=== PATIENT | female | born 1980 | race American Indian/Alaskan Native ===

== ENCOUNTER 2018-06-17 00:43 | Inpatient (IN) | payer MEDICAID ==
[2018-06-17] MEDS ORDERED: Sodium Chloride 0.9% 10 ML Syringe FLUSH PRN (01:34)
[2018-06-17] MEDS ORDERED: Ibuprofen 200 MG Tab, 24 Tab Bulk Bottle PO PRN (01:38)
[2018-06-17] MEDS ORDERED: Acetaminophen 325 MG Tab, 50 Tab Bulk Bottle PO PRN (01:38)
[2018-06-17] MEDS ORDERED: Docusate Sodium 100 MG Cap PO PRN (01:38)
[2018-06-17] MEDS ORDERED: Witch Hazel Medicated Pads 100/Jar TOP PRN (01:38)
--- NOTE | 2018-06-17 01:49 | PCM.LDHP ---
L&D History of Present Illness - General Date of Service: 06/17/18 Admit Problem/Dx: Patient Status Order with Admit Dx/Problem 06/17/18 00:44 Patient Status [ADT] Routine 06/17/18 01:38 Patient Status [ADT] Routine Admission Diagnosis/Problem Admission Diagnosis/Problem Vaginal delivery - Related Data Allergies/Adverse Reactions: Allergies Allergy/AdvReac Type Severity Reaction Status Date / Time No Known Allergies Allergy Verified 09/22/14 01:43 Home Medications: Home Meds Vit 90/Iron Fum/Folic [ Formula] 1 each PO DAILY 09/22/14 [ History] Ferrous Sulfate [Iron Supplement] 1 tab PO DAILY 10/25/14 [History] Past Medical History - Past Health History Medical/Surgical History: Denies Medical/Surgical History : 8 Para: 7 Other OB/BYN History: FABRICE-06/30/2018 second trimester US dating H&P Review of Systems - Review of Systems: Review Of Systems: See Below General: Reports: No Symptoms HEENT: Reports: No Symptoms Pulmonary: Reports: No Symptoms Cardiovascular: Reports: No Symptoms Gastrointestinal: Reports: No Symptoms Genitourinary: Reports: No Symptoms Musculoskeletal: Reports: No Symptoms Skin: Reports: No Symptoms Psychiatric: Reports: No Symptoms Neurological: Reports: No Symptoms Hematologic/Lymphatic: Reports: No Symptoms Immunologic: Reports: No Symptoms L&D Exam - Exam Exam: See Below - OB Specific Contraction Intensity: Strong Movement: Active Heart Tones: Present Presentation: Vertex - Exam General: Alert, Oriented HEENT: PERRLA, Conjunctiva Clear, EACs Clear, EOMI, Hearing Intact, Mucosa Moist & [place], Nares Patent, Normal Nasal Septum, Posterior Pharynx Clear, TMs Clear Neck: Supple, Trachea Midline Lungs: Clear to Auscultation, Normal Respiratory Effort Cardiovascular: Regular Rate, Regular Rhythm GI/Abdominal Exam: Normal Bowel Sounds, Soft, Non-Tender, No Organomegaly, No Distention, No Abnormal Bruit, No Mass, Pelvis Stable Rectal Exam: Normal Exam, Normal Rectal Tone Genitourinary: Normal external exam, Normal bimanual exam, Normal speculum exam Back Exam: Normal Inspection, Full Range of Motion Extremities: Normal Inspection, Normal Range of Motion, Non-Tender, No Pedal Edema, Normal Capillary Refill Skin: Warm, Dry, Intact Neurological: Cranial Nerves Intact, Reflexes Equal Bilateral Psychiatric: Alert, Normal Affect, Normal Mood - Patient Data Lab Results Last 24 hrs: Laboratory Results - last 24 hr 06/17/18 Range/Units 01:00 WBC 14.1 H (4.5-11.0) K/uL RBC 4.70 (3.30-5.50) M/uL Hgb 9.0 L (12.0-15.0) g/dL Hct 29.9 L (36.0-48.0) % MCV 64 L (80-98) fL MCH 19 L (27-31) pg MCHC 30 L (32-36) % Plt Count 312 (150-400) K/uL Neut % (Auto) 82 H (36-66) % Lymph % (Auto) 14 L (24-44) % [place] % (Auto) 4 (2-6) % Eos % (Auto) 0 L (2-4) % Baso % (Auto) 0 (0-1) % Result Diagrams: 06/17/18 01:00 - Problem List (1) SNOMED Code(s): 89199377 ICD Code: Z34.90 - ENCNTR FOR SUPRVSN OF NORMAL , UNSP, UNSP TRIMESTER Status: Acute Current Visit: Yes Qualifiers: Weeks of gestation: 38 weeks Qualified Code(s): Z3A.38 - 38 weeks gestation of (2) Insufficient care SNOMED Code(s): 9999252073871 ICD Code: O09.30 - SUPRVSN OF PREG W INSUFFICIENT ANTENAT CARE, UNSP TRIMESTER Status: Acute Current Visit: Yes (3) History of drug abuse SNOMED Code(s): 267202380 ICD Code: Z87.898 - PERSONAL HISTORY OF OTHER SPECIFIED CONDITIONS Status: Acute Current Visit: Yes (4) Social problem SNOMED Code(s): 391132719 ICD Code: Z65.9 - PROBLEM RELATED TO UNSPECIFIED PSYCHOSOCIAL CIRCUMSTANCES Status: Acute Current Visit: Yes (5) Positive GBS test SNOMED Code(s): 7811271033727, 9491588131583 ICD Code: B95.1 - STREPTOCOCCUS, GROUP B, CAUSING DISEASES CLASSD ELSWHR Status: Acute Current Visit: Yes (6) Precipitous delivery SNOMED Code(s): 784974733 ICD Code: O62.3 - PRECIPITATE LABOR Status: Acute Current Visit: Yes Problem List Initiated/Reviewed/Updated: Yes Orders Last 24hrs: Active Orders 24 hr Category Date Time Status Patient Status [ADT] Routine ADT 06/17/18 00:44 Active Patient Status [ADT] Routine ADT 06/17/18 01:38 Active Ambulate [RC] PER UNIT ROUTINE Care 06/17/18 01:34 Active Communication Order [RC] ASDIRECTED Care 06/17/18 01:34 Active Communication Order [RC] ROUTINE Care 06/17/18 01:38 Active Heart Tones [RC] PER UNIT ROUTINE Care 06/17/18 01:34 Active Non Stress Test [RC] Click to Edit Care 06/17/18 01:34 Active Notify Provider Vital Signs [RC] PRN Care 06/17/18 00:44 Active Notify Provider [RC] PRN Care 06/17/18 01:34 Active Up ad Dipti [RC] ASDIRECTED Care 06/17/18 01:34 Active VTE/DVT Education [RC] Click to Edit Care 06/17/18 01:35 Active Vital Signs [RC] PER UNIT ROUTINE Care 06/17/18 01:34 Active Vital Signs [RC] PFP Care 06/17/18 01:38 Active Consult to Case Management/Sas Etl Developer [CONS] Cons 06/17/18 01:38 Active Routine Regular Diet [DIET] Diet 06/17/18 Breakfast Active CBC WITH AUTO DIFF [HEME] Routine Lab 06/18/18 06:00 Ordered DRUG SCREEN, URINE [URCHEM] Routine Lab 06/17/18 01:34 Ordered UA W/MICROSCOPIC [URIN] Routine Lab 06/17/18 01:34 Ordered Acetaminophen [Tylenol Bulk Bottle] Med 06/17/18 01:38 Ordered 325 mg PO Q4H PRN Docusate Sodium [Colace] Med 06/17/18 01:38 Ordered 100 mg PO BID PRN Ferrous Sulfate Med 06/17/18 08:00 Ordered 325 mg PO WITHBREAKFAST Ibuprofen [Motrin Bulk Bottle] Med 06/17/18 01:38 Ordered 600 mg PO Q6H PRN Oxytocin/Normal Saline [Pitocin in NS 20 Units/1,000 ML Med 06/17/18 01:38 Ordered ] 20 unit in 1,000 ml IV ONETIME Vit with Ca/FA/Iron [ Plus Iron] Med 06/17/18 09:00 Ordered 1 each PO DAILY Sodium Chloride 0.9% [Saline Flush] Med 06/17/18 01:34 Ordered 10 ml FLUSH ASDIRECTED PRN Witgeorgina Hassan [Tucks] Med 06/17/18 01:38 Ordered 1 pad TOP ASDIRECTED PRN Assess Lochia [WOMSER] Per Unit Routine Ot 06/17/18 01:38 Ordered Assess Uterine Involution [WOMSER] Per Unit Routine Ot 06/17/18 01:38 Ordered DVT/VTE Prophylaxis Reflex [OM.PC] Routine Ot 06/17/18 01:34 Ordered Perineal Care [OM.PC] Per Unit Routine Ot 06/17/18 01:39 Ordered Saline Lock Insert [OM.PC] Routine Ot 06/17/18 01:34 Ordered Resuscitation Status Routine Resus Stat 06/17/18 01:34 Ordered Medication Orders Acetaminophen (Tylenol Bulk Bottle) 325 mg PO Q4H PRN PRN Reason: Pain Docusate Sodium (Colace) 100 mg PO BID PRN PRN Reason: Constipation Ferrous Sulfate (Ferrous Sulfate) 325 mg PO WITHBREAKFAST JUAN Oxytocin/Sodium Chloride (Pitocin In Ns 20 Units/1,000 Ml) 20 unit in 1,000 mls @ 2,997 mls/hr IV ONETIME ONE; Protocol Stop: 06/17/18 01:58 Ibuprofen (Motrin Bulk Bottle) 600 mg PO Q6H PRN PRN Reason: Pain Prenat Multivit/[place]/Iron/Folic Ac ( Plus Iron) 1 each PO DAILY JUAN Sodium Chloride (Saline Flush) 10 ml FLUSH ASDIRECTED PRN PRN Reason: Keep Vein Open Justine Hassan ([place]) 1 pad TOP ASDIRECTED PRN PRN Reason: Hemorrhoids Assessment/Plan Comment:: 06/17/2018 37 yo here at approximately 38 1/7 gestational weeks in active labor Patient states contractions got strong really fast Poor historian Poor care History of drug abuse SVE-Complete BBOW FHTs category one Contractions regular Plan- Monitor labor Monitor FHTs Plan and anticipate a precipitous vaginal delivery
[2018-06-17] MEDS ORDERED: Methylergonovine 0.2 MG/1 ML Amp ONE (01:58)
[2018-06-17] MEDS ORDERED: Methylergonovine 0.2 MG/1 ML Amp IM ONE (02:00)
--- NOTE | 2018-06-17 02:00 | PCM.DEL ---
L & D Note - General Info Date of Service: 06/17/18 Mother's Due Date: 06/30/18 (Late US due date) - Delivery Note Labor: Spontaneous Delivery Outcome: Livebirth Delivery Method: Spontaneous Vaginal Delivery-Single Delivery Mode: Spontaneous Presentation: tight cord times two around shoulder and arm with compound presentation Anesthesia Type: None Laceration: None Placenta: Intact, Spontaneous Cord: 3 Vessels Estimated Blood Loss: 400 Resuscitation Needed: Yes [place]: Bulb Syringe, Stimulated, Warmed, [place] Used, Warmer Used Provider: Domonique Bai Score 1 min: 2 Score 5 min: 6 Score 10 min: 9 Second Stage Interventions: Reports: Encouragement Given, Pushing Effectively Delivery Comments (Free Text/Narrative):: 06/17/2018 37 yo delivered a viable male at 0053 on 06/17/2018 in JUD position over an intact perineum precipitously. had a tight cord around its shoulder/arm times two with compound presentation, cord double clamped and cut on the perineum. then brought directly to warmer for assessment and intervention. APGARS-2/6/9, weight-8lbs 1oz, length-20.5 inches. was dried, stimulated, warmed, and bulb suctioned at the warmer. When noted to have no pulse or tone initiated neopuff. Neopuff done for 30 seconds, began to have an increase in heart rate, pink in color, and began to cry. Blow by then continued for approximately 4 more minutes. then stablized and was able to go skin to mother wrapped in a prewarmed blanket. Placenta spontaneous and intake, EBL-400ml, three vessel cord. No lacerations noted of labia, perineum, vagina, cervix, or rectum. Infant and mother now stable in labor and delivery room. - General Info Date of Service: 06/17/18 Functional Status: Reports: Pain Controlled - Review of Systems General: Reports: No Symptoms HEENT: Reports: No Symptoms Pulmonary: Reports: No Symptoms Cardiovascular: Reports: No Symptoms Gastrointestinal: Reports: No Symptoms Genitourinary: Reports: No Symptoms Musculoskeletal: Reports: No Symptoms Skin: Reports: No Symptoms Neurological: Reports: No Symptoms Psychiatric: Reports: No Symptoms - Patient Data Lab Results Last 24 Hours: Laboratory Results - last 24 hr 06/17/18 Range/Units 01:00 WBC 14.1 H (4.5-11.0) K/uL RBC 4.70 (3.30-5.50) M/uL Hgb 9.0 L (12.0-15.0) g/dL Hct 29.9 L (36.0-48.0) % MCV 64 L (80-98) fL MCH 19 L (27-31) pg MCHC 30 L (32-36) % Plt Count 312 (150-400) K/uL Neut % (Auto) 82 H (36-66) % Lymph % (Auto) 14 L (24-44) % [place] % (Auto) 4 (2-6) % Eos % (Auto) 0 L (2-4) % Baso % (Auto) 0 (0-1) % Med Orders - Current: Current Medications Acetaminophen (Tylenol Bulk Bottle) 325 - 650 mg PO Q4H PRN PRN Reason: Pain Docusate Sodium (Colace) 100 mg PO BID PRN PRN Reason: Constipation Ferrous Sulfate (Ferrous Sulfate) 325 mg PO WITHBREAKFAST [facility] Oxytocin/Sodium Chloride (Pitocin In Ns 20 Units/1,000 Ml) 20 unit in 1,000 mls @ 2,997 mls/hr IV ONETIME ONE; Protocol Stop: 06/17/18 01:58 Ibuprofen (Motrin Bulk Bottle) 600 mg PO Q6H PRN PRN Reason: Pain Prenat Multivit/Sketch Artist/Iron/Folic Ac ( Plus Iron) 1 each PO DAILY [facility] Sodium Chloride (Saline Flush) 10 ml FLUSH ASDIRECTED PRN PRN Reason: Keep Vein Open Witch Sonya (Tucks) 1 pad TOP ASDIRECTED PRN PRN Reason: Hemorrhoids Discontinued Medications Oxytocin/Sodium Chloride (Pitocin In Ns 20 Units/1,000 Ml) Confirm Administered Dose 20 unit in 1,000 mls @ as directed .ROUTE .STK-MED ONE Stop: 06/17/18 00:56 - Exam General: Alert, Oriented HEENT: Pupils Equal, Pupils Reactive, EOMI, Mucous Membr. Moist/[place] Neck: Supple Lungs: Clear to Auscultation, Normal Respiratory Effort Cardiovascular: Regular Rate, Regular Rhythm GI/Abdominal Exam: Normal Bowel Sounds, Soft, Non-Tender, No Organomegaly, No Distention, No Abnormal Bruit, No Mass, Pelvis Stable (Female) Exam: Normal External Exam, Normal Speculum Exam, Normal Bimanual Exam, Enlarged Uterus, Vaginal Bleeding Back Exam: Normal Inspection, Full Range of Motion Extremities: Normal Inspection, Normal Range of Motion, Non-Tender, No Pedal Edema, Normal Capillary Refill Skin: Warm, Dry, Intact Neurological: No New Focal Deficit Psy/Mental Status: Alert, Normal Affect, Normal Mood - Problem List & Annotations (1) SNOMED Code(s): 77251718 Code(s): Z34.90 - ENCNTR FOR SUPRVSN OF NORMAL , UNSP, UNSP TRIMESTER Status: Acute Current Visit: Yes Qualifiers: Weeks of gestation: 38 weeks Qualified Code(s): Z3A.38 - 38 weeks gestation of (2) Insufficient care SNOMED Code(s): 1342492149490 Code(s): O09.30 - SUPRVSN OF PREG W INSUFFICIENT ANTENAT CARE, UNSP TRIMESTER Status: Acute Current Visit: Yes (3) History of drug abuse SNOMED Code(s): 238880679 Code(s): Z87.898 - PERSONAL HISTORY OF OTHER SPECIFIED CONDITIONS Status: Acute Current Visit: Yes (4) Social problem SNOMED Code(s): 018413169 Code(s): Z65.9 - PROBLEM RELATED TO UNSPECIFIED PSYCHOSOCIAL CIRCUMSTANCES Status: Acute Current Visit: Yes (5) Positive GBS test SNOMED Code(s): 4909769252808, 4892888867940 Code(s): B95.1 - STREPTOCOCCUS, GROUP B, CAUSING DISEASES CLASSD [facility] Status: Acute Current Visit: Yes (6) Precipitous delivery SNOMED Code(s): 085778052 Code(s): O62.3 - PRECIPITATE LABOR Status: Acute Current Visit: Yes - Problem List Review Problem List Initiated/Reviewed/Updated: Yes - My Orders Last 24 Hours: My Active Orders 06/17/18 00:44 Patient Status [ADT] Routine Notify Provider Vital Signs [RC] PRN 06/17/18 01:34 Ambulate [RC] PER UNIT ROUTINE Communication Order [RC] ASDIRECTED Heart Tones [RC] PER UNIT ROUTINE Non Stress Test [RC] Click to Edit Notify Provider [RC] PRN Up ad Dipti [RC] ASDIRECTED Vital Signs [RC] PER UNIT ROUTINE DRUG SCREEN, URINE [URCHEM] Routine UA W/MICROSCOPIC [URIN] Routine Sodium Chloride 0.9% [Saline Flush] 10 ml FLUSH ASDIRECTED PRN DVT/VTE Prophylaxis Reflex [OM.PC] Routine Saline Lock Insert [OM.PC] Routine Resuscitation Status Routine 06/17/18 01:35 VTE/DVT Education [RC] Click to Edit 06/17/18 01:38 Patient Status [ADT] Routine Communication Order [RC] ROUTINE Vital Signs [RC] PFP Consult to Case Management/Production Shift Supervisor [CONS] Routine Acetaminophen [Tylenol Bulk Bottle] 325 mg PO Q4H PRN Docusate Sodium [Colace] 100 mg PO BID PRN Ibuprofen [Motrin Bulk Bottle] 600 mg PO Q6H PRN Oxytocin/Normal Saline [Pitocin in NS 20 Units/1,000 ML] 20 unit in 1,000 ml IV ONETIME Witch Sonya [Tucks] 1 pad TOP ASDIRECTED PRN Assess Lochia [WOMSER] Per Unit Routine Assess Uterine Involution [WOMSER] Per Unit Routine 06/17/18 01:39 Perineal Care [OM.PC] Per Unit Routine 06/17/18 08:00 Ferrous Sulfate 325 mg PO WITHBREAKFAST 06/17/18 09:00 Vit with Ca/FA/Iron [ Plus Iron] 1 each PO DAILY 06/17/18 Breakfast Regular Diet [DIET] 06/18/18 06:00 CBC WITH AUTO DIFF [HEME] Routine - Assessment Assessment:: 06/17/2018 37 yo G8 now P8 here at approximately 38 1/7 gestational weeks came in and delivered precipitously without complications Poor care History of drug abuse Poor historian Bottle feeding Labs-GBS [id number], will get rest of labs from [facility] on dayshift today since were drawn on 06/13/2018 in [place] - Plan Plan:: 06/17/2018 37 yo here at approximately 38 1/7 gestational weeks in active labor Patient states contractions got strong really fast Poor historian Poor care History of drug abuse SVE-Complete BBOW FHTs category one Contractions regular Plan- Monitor labor Monitor FHTs Plan and anticipate a precipitous vaginal delivery 06/17/2018 Routine Cares Complete all needed screening labs
[2018-06-17] MEDS: Prenatal Multivitamin with Calcium/Folic Acid/Iron Tab PO SCH (09:19)
[2018-06-17] MEDS: Ferrous Sulfate 325 MG Tab PO SCH (09:19)
--- NOTE | 2018-06-18 08:31 | PCM.PNPP ---
- General Info Date of Service: 06/18/18 Functional Status: Reports: Pain Controlled - Review of Systems General: Reports: No Symptoms HEENT: Reports: No Symptoms Pulmonary: Reports: No Symptoms Cardiovascular: Reports: No Symptoms Gastrointestinal: Reports: No Symptoms Genitourinary: Reports: No Symptoms Musculoskeletal: Reports: No Symptoms Skin: Reports: No Symptoms Neurological: Reports: No Symptoms Psychiatric: Reports: No Symptoms - General Info Date of Service: 06/18/18 - Patient Data Vital Signs - Most Recent: Last Vital Signs Temp 35.9 C 06/18/18 07:00 Pulse 64 06/18/18 07:00 Resp 18 06/18/18 07:00 BP 110/53 L 06/18/18 07:00 Pulse Ox 99 06/18/18 07:00 Weight - Most Recent: 62.324 kg I&O - Last 24 Hours: Intake & Output 06/17/18 06/18/18 06/18/18 22:59 06:59 14:59 Intake Total 1400 1680 Balance 1400 1680 Lab Results - Last 24 Hours: Laboratory Results - last 24 hr 06/18/18 Range/Units 05:55 WBC 10.3 (4.5-11.0) K/uL RBC 4.32 (3.30-5.50) M/uL Hgb 8.1 L (12.0-15.0) g/dL Hct 28.1 L (36.0-48.0) % MCV 65 L (80-98) fL MCH 19 L (27-31) pg MCHC 29 L (32-36) % Plt Count 299 (150-400) K/uL Neut % (Auto) 54 (36-66) % Lymph % (Auto) 37 (24-44) % [facility] % (Auto) 7 H (2-6) % Eos % (Auto) 2 (2-4) % Baso % (Auto) 1 (0-1) % Med Orders - Current: Current Medications Acetaminophen (Tylenol Bulk Bottle) 325 - 650 mg PO Q4H PRN PRN Reason: Pain Last Admin: 06/17/18 02:04 Dose: 325 mg Docusate Sodium (Colace) 100 mg PO BID PRN PRN Reason: Constipation Ferrous Sulfate (Ferrous Sulfate) 325 mg PO WITHBREAKFAST JUAN Last Admin: 06/17/18 09:19 Dose: 325 mg Ibuprofen (Motrin Bulk Bottle) 600 mg PO Q6H PRN PRN Reason: Pain Last Admin: 06/17/18 02:04 Dose: 600 mg Prenat Multivit/[place]/Iron/Folic Ac ( Plus Iron) 1 each PO DAILY JUAN Last Admin: 06/17/18 09:19 Dose: 1 each Sodium Chloride (Saline Flush) 10 ml FLUSH ASDIRECTED PRN PRN Reason: Keep Vein Open Witch Sonya (Tucks) 1 pad TOP ASDIRECTED PRN PRN Reason: Hemorrhoids Discontinued Medications Oxytocin/Sodium Chloride (Pitocin In Ns 20 Units/1,000 Ml) Confirm Administered Dose 20 unit in 1,000 mls @ as directed .ROUTE .STK-MED ONE Stop: 06/17/18 00:56 Last Admin: 06/17/18 05:16 Dose: Not Given Oxytocin/Sodium Chloride (Pitocin In Ns 20 Units/1,000 Ml) 20 unit in 1,000 mls @ 2,997 mls/hr IV ONETIME ONE; Protocol Stop: 06/17/18 01:58 Last Admin: 06/17/18 01:02 Dose: 999 munits/min, 2,997 mls/hr Methylergonovine Maleate (Methergine) Confirm Administered Dose 0.2 mg .ROUTE .STK-MED ONE Stop: 06/17/18 01:59 Last Admin: 06/17/18 02:07 Dose: 0.2 mg Methylergonovine Maleate (Methergine) 0.2 mg IM ONETIME ONE Stop: 06/17/18 02:01 Last Admin: 06/17/18 09:16 Dose: Not Given - Interaction Disposition, : in Room with Family Infant Interaction: Holding Infant Feeding: Bottle Fed Infant Support Person: Significant Other - Recovery Exam Fundal Tone: Firm Fundal Level: At Umbilicus Fundal Placement: Midline Lochia Amount: Scant Lochia Color: [place]/Red Perineum Description: Intact, Minimal Bruising/Swelling Episiotomy/Laceration: None Bladder Status: Voiding Urinary Elimination: Voided - Exam General: Alert, Oriented HEENT: Pupils Equal Neck: Supple Lungs: Clear to Auscultation, Normal Respiratory Effort Cardiovascular: Regular Rate, Regular Rhythm GI/Abdominal Exam: Normal Bowel Sounds, Soft, Non-Tender, No Organomegaly, No Distention, No Abnormal Bruit, No Mass, Pelvis Stable Extremities: Normal Inspection, Normal Range of Motion, Non-Tender, No Pedal Edema, Normal Capillary Refill Skin: Warm, Dry, Intact Neurological: No New Focal Deficit Psy/Mental Status: Alert, Normal Affect, Normal Mood - Problem List & Annotations (1) SNOMED Code(s): 05205644 Code(s): Z34.90 - ENCNTR FOR SUPRVSN OF NORMAL , UNSP, UNSP TRIMESTER Status: Acute Current Visit: Yes Qualifiers: Weeks of gestation: 38 weeks Qualified Code(s): Z3A.38 - 38 weeks gestation of (2) Insufficient care SNOMED Code(s): 2032396174375 Code(s): O09.30 - SUPRVSN OF PREG W INSUFFICIENT ANTENAT CARE, UNSP TRIMESTER Status: Acute Current Visit: Yes (3) History of drug abuse SNOMED Code(s): 471994302 Code(s): Z87.898 - PERSONAL HISTORY OF OTHER SPECIFIED CONDITIONS Status: Acute Current Visit: Yes (4) Social problem SNOMED Code(s): 262257608 Code(s): Z65.9 - PROBLEM RELATED TO UNSPECIFIED PSYCHOSOCIAL CIRCUMSTANCES Status: Acute Current Visit: Yes (5) Positive GBS test SNOMED Code(s): 1616695255313, 9242450323788 Code(s): B95.1 - STREPTOCOCCUS, GROUP B, CAUSING DISEASES CLASSD [facility] Status: Acute Current Visit: Yes (6) Precipitous delivery SNOMED Code(s): 643019390 Code(s): O62.3 - PRECIPITATE LABOR Status: Acute Current Visit: Yes (7) Substance abuse SNOMED Code(s): 13114307 Code(s): F19.10 - OTHER PSYCHOACTIVE SUBSTANCE ABUSE, UNCOMPLICATED Status : Acute Priority: High Current Visit: No - Problem List Review Problem List Initiated/Reviewed/Updated: Yes - My Orders Last 24 Hours: My Active Orders 06/17/18 08:00 Ferrous Sulfate 325 mg PO WITHBREAKFAST 06/17/18 09:00 Vit with Ca/FA/Iron [ Plus Iron] 1 each PO DAILY 06/17/18 Breakfast Regular Diet [DIET] - Assessment Assessment:: 06/17/2018 37 yo G8 now P8 here at approximately 38 1/7 gestational weeks came in and delivered precipitously without complications Poor care History of drug abuse Poor historian Bottle feeding Labs-GBS [id number], will get rest of labs from [facility] on dayshift today since were drawn on 06/13/2018 in [place] -------- 06/18/2018 day one Fundus firm and bleeding decreased Hgb-8.1 Voiding and passing gas Bottlefeeding Positive UDS-working on getting treatment - Plan Plan:: 06/17/2018 37 yo here at approximately 38 1/7 gestational weeks in active labor Patient states contractions got strong really fast Poor historian Poor care History of drug abuse SVE-Complete BBOW FHTs category one Contractions regular Plan- Monitor labor Monitor FHTs Plan and anticipate a precipitous vaginal delivery 06/17/2018 Routine Cares Complete all needed screening labs 06/18/2018 Continue routine Cares Discharge home today To see me six weeks
[2018-06-18] MEDS: Ferrous Sulfate 325 MG Tab PO SCH (09:23)
[2018-06-18] MEDS: Prenatal Multivitamin with Calcium/Folic Acid/Iron Tab PO SCH (09:24)
[2018-06-18 13:04] VITALS: BP 115/60
== END 2018-06-18 12:30 | disposition home or self-care (01) | DRG 775 ==
LOC: JP.OB 00:43 → UNDOADMOB 00:47 → JP.MS 00:47 → OBSVTOIN 00:53 → INTOOBSV 00:53 → JP.OB 00:53 → JP.MS 11:12
PROVIDERS: ADMIT Advanced Practice Midwife; ATTEND Advanced Practice Midwife
PROC: 10E0XZZ Delivery of Products of Conception, External Approach (ICD-10-PCS; principal; 2018-06-17)
DX: O62.3 Precipitate labor (principal); O99.324 Drug use complicating childbirth; F15.90 Other stimulant use, unspecified, uncomplicated; O99.824 Streptococcus B carrier state complicating childbirth; O69.89X0 Labor and delivery complicated by other cord complications, not applicable or unspecified; O32.6XX0 Maternal care for compound presentation, not applicable or unspecified; Z3A.38 38 weeks gestation of pregnancy; Z37.0 Single live birth; Z65.9 Problem related to unspecified psychosocial circumstances; Z87.898 Personal history of other specified conditions
CPT/HCPCS: 36415; 59409; 80305-QW; 81001; 85025; A9270-GY; J2210; J2590

== ENCOUNTER 2020-06-30 13:27 | Inpatient (IN) | payer MEDICAID ==
[2020-06-30] MEDS ORDERED: Penicillin G Potassium 5 MILLUNITS in Sodium Chloride 0.9% 100 ML IV ONE (13:52)
[2020-06-30] MEDS ORDERED: Sodium Chloride 0.9% 10 ML Syringe FLUSH PRN (13:54)
[2020-06-30] MEDS ORDERED: Misoprostol 200 MCG Tab ONE (14:05)
[2020-06-30] MEDS ORDERED: Carboprost Tromethamine 250 MCG/1 ML Amp ONE (14:05)
[2020-06-30] MEDS ORDERED: Methylergonovine 0.2 MG/1 ML Amp ONE (14:05)
[2020-06-30] MEDS ORDERED: Lidocaine 1% 50 ML MDV ONE (14:06)
[2020-06-30] MEDS ORDERED: Oxytocin 10 Units/1 ML SDV ONE (14:06)
--- NOTE | 2020-06-30 14:11 | PCM.LDHP ---
L&D History of Present Illness - General Date of Service: 06/30/20 Admit Problem/Dx: Patient Status Order with Admit Dx/Problem 06/30/20 13:54 Patient Status [ADT] Routine Admission Diagnosis/Problem Admission Diagnosis/Problem Labor established Source of Information: Patient History Limitations: Reports: No Limitations - History of Present Illness Introduction:: 06/30/20 Patria is a 39 yo per her report at unknown gestation of . She appears term and baby feels decent size with leopolds. She reports doing metha mphetamines 2 days ago. Labor started this am around 1000. She is intact. Baby is vertex. She has had no visits this . Anticipate . Severity: Moderate Improves with: Reports: None Worsens with: Reports: Breathing Associated Symptoms: Reports: vaginal bleeding (bloody show). Denies: vaginal fluid - Related Data Allergies/Adverse Reactions: Allergies Allergy/AdvReac Type Severity Reaction Status Date / Time No Known Allergies Allergy Verified 09/22/14 01:43 Home Medications: Home Meds Vit 90/Iron Fum/Folic [ Formula] 1 each PO DAILY 09/22/14 [History] Past Medical History - Past Health History Medical/Surgical History: Denies Medical/Surgical History PHYS ASST History: Reports: None, Other (See Below) (no care, drug abuse) : 10 Para: 9 LMP (Approximate): Other OB/BYN History: FABRICE-06/30/2018 second trimester US dating Psychiatric History: Reports: Other (See Below) Other Psychiatric History: history of drug abuse - Infectious Disease History Infectious Disease History: Reports: Chicken Pox Social & Family History - Family History Family Medical History: Noncontributory - Caffeine Use Caffeine Use: Reports: Soda Other Caffeine Use: 2 cans daily H&P Review of Systems - Review of Systems: Review Of Systems: See Below General: Reports: No Symptoms HEENT: Reports: No Symptoms Pulmonary: Reports: No Symptoms Cardiovascular: Reports: No Symptoms Gastrointestinal: Reports: No Symptoms Genitourinary: Reports: No Symptoms Musculoskeletal: Reports: No Symptoms Skin: Reports: No Symptoms Psychiatric: Reports: No Symptoms Neurological: Reports: No Symptoms Hematologic/Lymphatic: Reports: No Symptoms Immunologic: Reports: No Symptoms L&D Exam - Exam Exam: See Below - OB Specific Contraction Intensity: Strong Movement: Active Heart Tones: Present Heart Tones per Min: 150 Heart Rate (FHR) Variability: Moderate (6-25 bmp) Presentation: Vertex - Turner Score Turner Score Cervix Position: Midposition - Exam General: Alert, Oriented HEENT: PERRLA, Hearing Intact, Nares Patent, Pupils Equal, Pupils Reactive Neck: Supple, Trachea Midline Lungs: Clear to Auscultation, Normal Respiratory Effort Cardiovascular: Regular Rate, Regular Rhythm GI/Abdominal Exam: Normal Bowel Sounds, Soft, Non-Tender, No Organomegaly, No Distention, No Abnormal Bruit, No Mass, Pelvis Stable Rectal Exam: Normal Exam, Normal Rectal Tone Genitourinary: Normal external exam, Normal bimanual exam, Cervical dilitation, Enlarged uterus Back Exam: Normal Inspection, Full Range of Motion Extremities: Normal Inspection, Normal Range of Motion, Non-Tender, No Pedal Edema, Normal Capillary Refill Skin: Warm, Dry, Intact Neurological: Cranial Nerves Intact, Reflexes Equal Bilateral Psychiatric: Alert, Normal Affect, Normal Mood - Patient Data Lab Results Last 24 hrs: Laboratory Results - last 24 hr 06/30/20 06/30/20 Range/Units 13:34 13:50 Urine Color Yellow (YELLOW) Urine Appearance Cloudy A (CLEAR) Urine pH 7.0 (5.0-8.0) Ur Specific [place] 1.020 (1.008-1.030) Urine Protein 30 H (NEGATIVE) mg/dL Urine Glucose (UA) Negative (NEGATIVE) mg/dL Urine Ketones Negative (NEGATIVE) mg/dL Urine Occult Blood Negative (NEGATIVE) Urine Nitrite Positive H (NEGATIVE) Urine Bilirubin Negative (NEGATIVE) Urine Urobilinogen 4.0 H (0.2-1.0) EU/dL Ur Leukocyte Esterase Small H (NEGATIVE) Urine RBC Not seen (0-5) Urine WBC 10-20 H (0-5) Ur Epithelial Cells Few Amorphous Sediment Not seen Urine Bacteria Many Urine Mucus Not seen Urine Opiates Screen Negative (NEGATIVE) Ur Oxycodone Screen Negative (NEGATIVE) Urine Methadone Screen Negative (NEGATIVE) Ur Propoxyphene Screen Negative (NEGATIVE) Ur Barbiturates Screen Negative (NEGATIVE) Ur Tricyclics Screen Negative (NEGATIVE) Ur Phencyclidine Scrn Negative (NEGATIVE) Ur Amphetamine Screen Presumptive positive H (NEGATIVE) U Methamphetamines Scrn Presumptive positive H (NEGATIVE) Urine MDMA Screen Negative (NEGATIVE) U Benzodiazepines Scrn Negative (NEGATIVE) U Cocaine Metab Screen Negative (NEGATIVE) U Marijuana (THC) Screen Negative (NEGATIVE) - Problem List (1) with fetus of unknown gestational age SNOMED Code(s): 634008909 ICD Code: Z34.90 - ENCNTR FOR SUPRVSN OF NORMAL , UNSP, UNSP TRIMESTER Status: Acute Current Visit: Yes (2) History of drug abuse SNOMED Code(s): 354145438 ICD Code: Z87.898 - PERSONAL HISTORY OF OTHER SPECIFIED CONDITIONS Status: Acute Current Visit: No (3) Insufficient care SNOMED Code(s): 8084713692210 ICD Code: O09.30 - SUPRVSN OF PREG W INSUFFICIENT ANTENAT CARE, UNSP TRIMESTER Status: Acute Current Visit: No Qualifiers: Trimester: third trimester Qualified Code(s): O09.33 - Supervision of with insufficient care, third trimester Problem List Initiated/Reviewed/Updated: Yes Orders Last 24hrs: Active Orders 24 hr Category Date Time Status Patient Status [ADT] Routine ADT 06/30/20 13:54 Active Communication Order [RC] ASDIRECTED Care 06/30/20 13:54 Active Heart Tones [RC] PER UNIT ROUTINE Care 06/30/20 13:54 Active Notify Provider Vital Signs [RC] PRN Care 06/30/20 13:55 Active Notify Provider [RC] PRN Care 06/30/20 13:54 Active OB Check [OM.PC] Click to Edit Care 06/30/20 13:34 Ordered VTE/DVT Education [RC] Click to Edit Care 06/30/20 13:56 Active Vital Signs [RC] PER UNIT ROUTINE Care 06/30/20 13:54 Active Clear Liquid Diet [DIET] Diet 06/30/20 Lunch Active OB Ltd 1 or More Fetus [US] Stat Exams 06/30/20 13:37 Stop Req ABO/RH TYPE [BBK] Stat Lab 06/30/20 13:53 Ordered CBC WITH AUTO DIFF [HEME] Stat Lab 06/30/20 13:53 Ordered HBSAG SCREEN Routine Lab 06/30/20 13:53 Ordered HCV ANTIBODY Routine Lab 06/30/20 13:53 Ordered HIV RAPID SCREEN RLFX COMFIRM [CHEM] Stat Lab 06/30/20 13:53 Ordered RUBELLA ANTIBODIES, IGG Stat Lab 06/30/20 13:53 Ordered T PALLIDUM SCREENING CASCADE Routine Lab 06/30/20 13:53 Ordered Oxytocin/Normal Saline [Pitocin in NS 20 Units/1,000 ML Med 06/30/20 14:00 Active ] 20 unit in 1,000 ml IV ASDIRECTED Penicillin G Potassium [Pfizerpen] 5 millunits Med 06/30/20 13:52 Active Sodium Chloride 0.9% [Normal Saline] 100 ml IV ONETIME Sodium Chloride 0.9% [Saline Flush] Med 06/30/20 13:54 Active 10 ml FLUSH ASDIRECTED PRN DVT/VTE Prophylaxis Reflex [OM.PC] Routine Oth 06/30/20 13:54 Ordered Saline Lock Insert [OM.PC] Routine Oth 06/30/20 13:54 Ordered Resuscitation Status Routine Resus Stat 06/30/20 13:54 Ordered Medication Orders Penicillin G Potassium 5 (millunits/ Sodium Chloride) 100 mls @ 200 mls/hr IV ONETIME ONE Stop: 06/30/20 14:21 Oxytocin/Sodium Chloride (Pitocin In Ns 20 Units/1,000 Ml) 20 unit in 1,000 mls @ 999 mls/hr IV ASDIRECTED JUAN; Protocol Sodium Chloride (Saline Flush) 10 ml FLUSH ASDIRECTED PRN PRN Reason: Keep Vein Open Assessment/Plan Comment:: 06/30/20 per patient report Unknown [place] GBS unknown Positive drug screen Plan: Penicillin for unknown GBS All labs ordered Ready for NRP Cord drug testing
[2020-06-30] MEDS ORDERED: Docusate Sodium 100 MG Cap PO PRN (14:49)
[2020-06-30] MEDS ORDERED: Acetaminophen 325 MG Tab, 50 Tab Bulk Bottle PO PRN (15:00)
[2020-06-30] MEDS ORDERED: Ibuprofen 200 MG Tab, 24 Tab Bulk Bottle PO PRN (15:01)
--- NOTE | 2020-06-30 15:03 | PCM.DEL ---
L & D Note - General Info Date of Service: 06/30/20 - Delivery Note Labor: Spontaneous Delivery Outcome: Livebirth Delivery Method: Spontaneous Vaginal Delivery-Single Delivery Mode: Spontaneous Presentation: Left Occiput Anterior (FOSTER) Nuchal Cord: Present (easily reduced) Anesthesia Type: None Amniotic Fluid Description: Clear Episiotomy Type: None Laceration: None Placenta: Intact, Spontaneous Cord: 3 Vessels Estimated Blood Loss: 250 Resuscitation Needed: No [place]: Bulb Syringe, Stimulated, Warmed Provider: Aliza Calvo Score 1 min: 7 Score 5 min: 8 Second Stage Interventions: Reports: Second Nurse Assessed Progress of Descent, Second Nurse Reviewed Contraction Pattern, Second Nurse Reviewed Heart Tones, Encouragement Given, Pushing Effectively, Pushing, McRobert's Position, Pushing, Pulls Own Legs Back Delivery Comments (Free Text/Narrative):: 06/30/20 39 yo G10 now P10 per her report came into labor in delivery in active labor and had a precipitous delivery. Unknown gestational age. Mother is a poor historian and had no care. She admits to methamphetamine use 2 days ago. Contractions were every 2-4 min and strong. On first SVE she was 7 cm, membranes intact. After getting set up for delivery patient was 9 cm with bulging bag. AROM performed at 1421 with large amount of clear fluid. Patient complete and pushed shortly after and delivered male baby spontaneously at 1431. Bulb suction and stimulation done. 7 at 1 min. Baby to mothers chest and delayed cord clamping done. Baby then brought to warmer for stimulation due to weak cry. Second 8. Placenta delivered spontaneously intact at 1435 with 3 vessel cord. EBL 250 ml. No vaginal, perineal, or cervical lacerations. FF, IV pitocin given. Baby weight 7 lb 14 oz. Mother and baby both in stable condition. Stages of labor: 1: [id number] 2: [id number] 3: [id number] - General Info Date of Service: 06/30/20 Functional Status: Reports: Pain Controlled - Review of Systems General: Reports: No Symptoms HEENT: Reports: No Symptoms Pulmonary: Reports: No Symptoms Cardiovascular: Reports: No Symptoms Gastrointestinal: Reports: No Symptoms Genitourinary: Reports: No Symptoms Musculoskeletal: Reports: No Symptoms Skin: Reports: No Symptoms Neurological: Reports: No Symptoms Psychiatric: Reports: No Symptoms - Patient Data Vitals - Most Recent: Last Vital Signs Temp 37.1 C 06/30/20 14:00 Pulse 113 H 06/30/20 14:00 Resp 18 06/30/20 14:00 BP 132/80 06/30/20 14:00 Pulse Ox 97 06/30/20 14:00 Weight - Most Recent: 72.575 kg Lab Results Last 24 Hours: Laboratory Results - last 24 hr 06/30/20 06/30/20 06/30/20 Range/Units 13:34 13:50 14:05 WBC 12.3 H (4.5-11.0) K/uL RBC 4.66 (3.30-5.50) M/uL Hgb 8.2 L (12.0-15.0) g/dL Hct 29.2 L (36.0-48.0) % MCV 63 L (80-98) fL MCH 18 L (27-31) pg MCHC 28 L (32-36) % Plt Count 260 (150-400) K/uL Neut % (Auto) 75 H (36-66) % Lymph % (Auto) 20 L (24-44) % [place] % (Auto) 5 (2-6) % Eos % (Auto) 1 L (2-4) % Baso % (Auto) 0 (0-1) % Urine Color Yellow (YELLOW) Urine Appearance Cloudy A (CLEAR) Urine pH 7.0 (5.0-8.0) Ur Specific [place] 1.020 (1.008-1.030) Urine Protein 30 H (NEGATIVE) mg/dL Urine Glucose (UA) Negative (NEGATIVE) mg/dL Urine Ketones Negative (NEGATIVE) mg/dL Urine Occult Blood Negative (NEGATIVE) Urine Nitrite Positive H (NEGATIVE) Urine Bilirubin Negative (NEGATIVE) Urine Urobilinogen 4.0 H (0.2-1.0) EU/dL Ur Leukocyte Esterase Small H (NEGATIVE) Urine RBC Not seen (0-5) Urine WBC 10-20 H (0-5) Ur Epithelial Cells Few Amorphous Sediment Not seen Urine Bacteria Many Urine Mucus Not seen Urine Opiates Screen Negative (NEGATIVE) Ur Oxycodone Screen Negative (NEGATIVE) Urine Methadone Screen Negative (NEGATIVE) Ur Propoxyphene Screen Negative (NEGATIVE) Ur Barbiturates Screen Negative (NEGATIVE) Ur Tricyclics Screen Negative (NEGATIVE) Ur Phencyclidine Scrn Negative (NEGATIVE) Ur Amphetamine Screen Presumptive positive H (NEGATIVE) U Methamphetamines Scrn Presumptive positive H (NEGATIVE) Urine MDMA Screen Negative (NEGATIVE) U Benzodiazepines Scrn Negative (NEGATIVE) U Cocaine Metab Screen Negative (NEGATIVE) U Marijuana (THC) Screen Negative (NEGATIVE) HIV-1 Ab Rapid Screen (NON-REACT.) 06/30/20 Range/Units 14:05 WBC (4.5-11.0) K/uL RBC (3.30-5.50) M/uL Hgb (12.0-15.0) g/dL Hct (36.0-48.0) % MCV (80-98) fL MCH (27-31) pg MCHC (32-36) % Plt Count (150-400) K/uL Neut % (Auto) (36-66) % Lymph % (Auto) (24-44) % [place] % (Auto) (2-6) % Eos % (Auto) (2-4) % Baso % (Auto) (0-1) % Urine Color (YELLOW) Urine Appearance (CLEAR) Urine pH (5.0-8.0) Ur Specific [place] (1.008-1.030) Urine Protein (NEGATIVE) mg/dL Urine Glucose (UA) (NEGATIVE) mg/dL Urine Ketones (NEGATIVE) mg/dL Urine Occult Blood (NEGATIVE) Urine Nitrite (NEGATIVE) Urine Bilirubin (NEGATIVE) Urine Urobilinogen (0.2-1.0) EU/dL Ur Leukocyte Esterase (NEGATIVE) Urine RBC (0-5) Urine WBC (0-5) Ur Epithelial Cells Amorphous Sediment Urine Bacteria Urine Mucus Urine Opiates Screen (NEGATIVE) Ur Oxycodone Screen (NEGATIVE) Urine Methadone Screen (NEGATIVE) Ur Propoxyphene Screen (NEGATIVE) Ur Barbiturates Screen (NEGATIVE) Ur Tricyclics Screen (NEGATIVE) Ur Phencyclidine Scrn (NEGATIVE) Ur Amphetamine Screen (NEGATIVE) U Methamphetamines Scrn (NEGATIVE) Urine MDMA Screen (NEGATIVE) U Benzodiazepines Scrn (NEGATIVE) U Cocaine Metab Screen (NEGATIVE) U Marijuana (THC) Screen (NEGATIVE) HIV-1 Ab Rapid Screen Non-reactive (NON-REACT.) Med Orders - Current: Current Medications Acetaminophen (Tylenol) 650 mg PO Q4H PRN PRN Reason: mild pain or fever Docusate Sodium (Colace) 100 mg PO BID PRN PRN Reason: Constipation Ferrous Sulfate (Ferrous Sulfate) 325 mg PO BIDMEALS [facility] Oxytocin/Sodium Chloride (Pitocin In Ns 20 Units/1,000 Ml) 20 unit in 1,000 mls @ 999 mls/hr IV ASDIRECTED JUAN; Protocol Ibuprofen (Motrin) 600 mg PO Q4H PRN PRN Reason: mild pain or fever Sodium Chloride (Saline Flush) 10 ml FLUSH ASDIRECTED PRN PRN Reason: Keep Vein Open Discontinued Medications Carboprost Tromethamine (Hemabate Ds) Confirm Administered Dose 250 mcg .ROUTE .STK-MED ONE Stop: 06/30/20 14:06 Penicillin G Potassium 5 (millunits/ Sodium Chloride) 100 mls @ 200 mls/hr IV ONETIME ONE Stop: 06/30/20 14:21 Lidocaine HCl (Xylocaine 1%) Confirm Administered Dose 100 ml .ROUTE .STK-MED ONE Stop: 06/30/20 14:07 Methylergonovine Maleate (Methergine) Confirm Administered Dose 0.2 mg .ROUTE .STK-MED ONE Stop: 06/30/20 14:06 Misoprostol (Cytotec) Confirm Administered Dose 800 mcg .ROUTE .STK-MED ONE Stop: 06/30/20 14:06 Oxytocin (Pitocin) Confirm Administered Dose 10 unit .ROUTE .STK-MED ONE Stop: 06/30/20 14:07 - Exam General: Alert, Oriented HEENT: Pupils Equal, Pupils Reactive, EOMI, Mucous Membr. Moist/[place] Neck: Supple Lungs: Clear to Auscultation, Normal Respiratory Effort Cardiovascular: Regular Rate, Regular Rhythm GI/Abdominal Exam: Normal Bowel Sounds, Soft, Non-Tender, No Distention, No Mass, Pelvis Stable (Female) Exam: Normal External Exam, Normal Bimanual Exam, Cervical Discharge, Enlarged Uterus, Vaginal Bleeding. No: Vaginal Tears Back Exam: Normal Inspection, Full Range of Motion Extremities: Normal Inspection, Normal Range of Motion, Non-Tender, No Pedal Edema, Normal Capillary Refill Skin: Warm, Dry, Intact Wound/Incisions: Healing Well Neurological: No New Focal Deficit Psy/Mental Status: Alert, Normal Affect, Normal Mood - Problem List & Annotations (1) with fetus of unknown gestational age SNOMED Code(s): 818900276 Code(s): Z34.90 - ENCNTR FOR SUPRVSN OF NORMAL , UNSP, UNSP TRIMESTER Status: Acute Current Visit: Yes (2) History of drug abuse SNOMED Code(s): 244158547 Code(s): Z87.898 - PERSONAL HISTORY OF OTHER SPECIFIED CONDITIONS Status: Acute Current Visit: No (3) Insufficient care SNOMED Code(s): 3330778208656 Code(s): O09.30 - SUPRVSN OF PREG W INSUFFICIENT ANTENAT CARE, UNSP TRIMESTER Status: Acute Current Visit: No Qualifiers: Trimester: third trimester Qualified Code(s): O09.33 - Supervision of with insufficient care, third trimester (4) Vaginal delivery SNOMED Code(s): 650678053 Code(s): O80 - ENCOUNTER FOR FULL-TERM UNCOMPLICATED DELIVERY Status: Acute Current Visit: Yes - Problem List Review Problem List Initiated/Reviewed/Updated: Yes - My Orders Last 24 Hours: My Active Orders 06/30/20 Lunch Clear Liquid Diet [DIET] 06/30/20 13:34 OB Check [OM.PC] Click to Edit 06/30/20 13:37 OB Ltd 1 or More Fetus [US] Stat 06/30/20 13:54 Patient Status [ADT] Routine Communication Order [RC] ASDIRECTED Heart Tones [RC] PER UNIT ROUTINE Notify Provider [RC] PRN Vital Signs [RC] PER UNIT ROUTINE Sodium Chloride 0.9% [Saline Flush] 10 ml FLUSH ASDIRECTED PRN DVT/VTE Prophylaxis Reflex [OM.PC] Routine Saline Lock Insert [OM.PC] Routine Resuscitation Status Routine 06/30/20 13:55 Notify Provider Vital Signs [RC] PRN 06/30/20 13:56 VTE/DVT Education [RC] Click to Edit 06/30/20 14:00 Oxytocin/Normal Saline [Pitocin in NS 20 Units/1,000 ML] 20 unit in 1,000 ml IV ASDIRECTED 06/30/20 14:05 HBSAG SCREEN Routine HCV ANTIBODY Routine RUBELLA ANTIBODIES, IGG Stat T PALLIDUM SCREENING CASCADE Routine 06/30/20 14:26 ABO/RH TYPE [BBK] Stat 06/30/20 14:49 Patient Status [ADT] Routine May Shower [RC] ASDIRECTED Up ad Dipti [RC] ASDIRECTED Vital Signs [RC] PFP Consult to Case Management/Chemist Physical [CONS] Routine Acetaminophen [TylenoL] 650 mg PO Q4H PRN Docusate Sodium [Colace] 100 mg PO BID PRN Ibuprofen [Motrin] 600 mg PO Q4H PRN Assess Lochia [WOMSER] Per Unit Routine Assess Uterine Involution [WOMSER] Per Unit Routine 06/30/20 14:50 Ice Therapy [OM.PC] Per Unit Routine Perineal Care [OM.PC] Per Unit Routine 06/30/20 Dinner Regular Diet [DIET] Ferrous Sulfate 325 mg PO BIDMEALS 07/01/20 05:11 CBC WITH AUTO DIFF [HEME] AM - Assessment Assessment:: 06/30/20 delivered male infant via No care, unknown GA but baby appears term Substance abuse, last use 2 days ago Hgb 8.2 pre-delivery HIV negative, UDS positive amphetamines and methamphetamines All other labs pending Unknown GBS- started penicillin but did not finish dose before delivery FF and EBL 250 ml - Plan Plan:: 06/30/20 per patient report Unknown [place] GBS unknown Positive drug screen Plan: Penicillin for unknown GBS All labs ordered Ready for NRP Cord drug testing 06/30/20 Routine pp cares Social service consult Hgb repeat tomorrow am Ferrous sulfate Plans to bottle feed
[2020-06-30] MEDS: Ferrous Sulfate 325 MG Tab PO SCH (17:33)
[2020-07-01] MEDS: Ferrous Sulfate 325 MG Tab PO SCH ×2 (11:26→16:13)
--- NOTE | 2020-07-01 11:53 | PCM.PNPP ---
- General Info Date of Service: 07/01/20 Functional Status: Reports: Pain Controlled - Review of Systems General: Reports: No Symptoms HEENT: Reports: No Symptoms Pulmonary: Reports: No Symptoms Cardiovascular: Reports: No Symptoms Gastrointestinal: Reports: No Symptoms Genitourinary: Reports: No Symptoms Musculoskeletal: Reports: No Symptoms Skin: Reports: No Symptoms Neurological: Reports: No Symptoms Psychiatric: Reports: No Symptoms - General Info Date of Service: 07/01/20 - Patient Data Vital Signs - Most Recent: Last Vital Signs Temp 35.8 C L 07/01/20 10:48 Pulse 84 07/01/20 10:48 Resp 16 07/01/20 10:48 BP 134/86 07/01/20 10:48 Pulse Ox 98 07/01/20 10:48 Weight - Most Recent: 72.575 kg I&O - Last 24 Hours: Intake & Output 06/30/20 07/01/20 07/01/20 22:59 06:59 14:59 Intake Total 500 120 Balance 500 120 Lab Results - Last 24 Hours: Laboratory Results - last 24 hr 06/30/20 06/30/20 06/30/20 Range/Units 13:34 13:50 14:05 WBC 12.3 H (4.5-11.0) K/uL RBC 4.66 (3.30-5.50) M/uL Hgb 8.2 L (12.0-15.0) g/dL Hct 29.2 L (36.0-48.0) % MCV 63 L (80-98) fL MCH 18 L (27-31) pg MCHC 28 L (32-36) % Plt Count 260 (150-400) K/uL Neut % (Auto) 75 H (36-66) % Lymph % (Auto) 20 L (24-44) % [place] % (Auto) 5 (2-6) % Eos % (Auto) 1 L (2-4) % Baso % (Auto) 0 (0-1) % Urine Color Yellow (YELLOW) Urine Appearance Cloudy A (CLEAR) Urine pH 7.0 (5.0-8.0) Ur Specific [place] 1.020 (1.008-1.030) Urine Protein 30 H (NEGATIVE) mg/dL Urine Glucose (UA) Negative (NEGATIVE) mg/dL Urine Ketones Negative (NEGATIVE) mg/dL Urine Occult Blood Negative (NEGATIVE) Urine Nitrite Positive H (NEGATIVE) Urine Bilirubin Negative (NEGATIVE) Urine Urobilinogen 4.0 H (0.2-1.0) EU/dL Ur Leukocyte Esterase Small H (NEGATIVE) Urine RBC Not seen (0-5) Urine WBC 10-20 H (0-5) Ur Epithelial Cells Few Amorphous Sediment Not seen Urine Bacteria Many Urine Mucus Not seen Urine Opiates Screen Negative (NEGATIVE) Ur Oxycodone Screen Negative (NEGATIVE) Urine Methadone Screen Negative (NEGATIVE) Ur Propoxyphene Screen Negative (NEGATIVE) Ur Barbiturates Screen Negative (NEGATIVE) Ur Tricyclics Screen Negative (NEGATIVE) Ur Phencyclidine Scrn Negative (NEGATIVE) Ur Amphetamine Screen Presumptive positive H (NEGATIVE) U Methamphetamines Scrn Presumptive positive H (NEGATIVE) Urine MDMA Screen Negative (NEGATIVE) U Benzodiazepines Scrn Negative (NEGATIVE) U Cocaine Metab Screen Negative (NEGATIVE) U Marijuana (THC) Screen Negative (NEGATIVE) HIV-1 Ab Rapid Screen (NON-REACT.) Blood Type 06/30/20 06/30/20 07/01/20 Range/Units 14:05 14:26 06:05 WBC 13.0 H (4.5-11.0) K/uL RBC 4.00 (3.30-5.50) M/uL Hgb 7.0 L (12.0-15.0) g/dL Hct 25.6 L (36.0-48.0) % MCV 64 L (80-98) fL MCH 18 L (27-31) pg MCHC 27 L (32-36) % Plt Count 231 (150-400) K/uL Neut % (Auto) 60 (36-66) % Lymph % (Auto) 32 (24-44) % [place] % (Auto) 6 (2-6) % Eos % (Auto) 2 (2-4) % Baso % (Auto) 1 (0-1) % Urine Color (YELLOW) Urine Appearance (CLEAR) Urine pH (5.0-8.0) Ur Specific [place] (1.008-1.030) Urine Protein (NEGATIVE) mg/dL Urine Glucose (UA) (NEGATIVE) mg/dL Urine Ketones (NEGATIVE) mg/dL Urine Occult Blood (NEGATIVE) Urine Nitrite (NEGATIVE) Urine Bilirubin (NEGATIVE) Urine Urobilinogen (0.2-1.0) EU/dL Ur Leukocyte Esterase (NEGATIVE) Urine RBC (0-5) Urine WBC (0-5) Ur Epithelial Cells Amorphous Sediment Urine Bacteria Urine Mucus Urine Opiates Screen (NEGATIVE) Ur Oxycodone Screen (NEGATIVE) Urine Methadone Screen (NEGATIVE) Ur Propoxyphene Screen (NEGATIVE) Ur Barbiturates Screen (NEGATIVE) Ur Tricyclics Screen (NEGATIVE) Ur Phencyclidine Scrn (NEGATIVE) Ur Amphetamine Screen (NEGATIVE) U Methamphetamines Scrn (NEGATIVE) Urine MDMA Screen (NEGATIVE) U Benzodiazepines Scrn (NEGATIVE) U Cocaine Metab Screen (NEGATIVE) U Marijuana (THC) Screen (NEGATIVE) HIV-1 Ab Rapid Screen Non-reactive (NON-REACT.) Blood Type O POSITIVE Med Orders - Current: Current Medications Acetaminophen (Tylenol Bulk Bottle) 650 mg PO Q4H PRN PRN Reason: mild pain or fever Last Admin: 07/01/20 05:38 Dose: 650 mg Documented by: Docusate Sodium (Colace) 100 mg PO BID PRN PRN Reason: Constipation Ferrous Sulfate ([facility]ous Sulfate) [facility] Last Admin: 07/01/20 11:26 Dose: 325 mg Documented by: Oxytocin/Sodium Chloride (Pitocin In Ns 20 Units/1,000 Ml) 20 unit in 1,000 mls @ 999 mls/hr IV ASDIRECTED [facility]; Protocol Last Admin: 06/30/20 16:14 Dose: 999 mls/hr, 999 mls/hr Documented by: Ibuprofen (Motrin Bulk Bottle) 600 mg PO Q6H PRN PRN Reason: mild pain or fever Last Admin: 07/01/20 05:37 Dose: 600 mg Documented by: Sodium Chloride (Saline Flush) 10 ml FLUSH ASDIRECTED PRN PRN Reason: Keep Vein Open Discontinued Medications Carboprost Tromethamine (Hemabate Ds) Confirm Administered Dose 250 mcg .ROUTE .STK-MED ONE Stop: 06/30/20 14:06 Last Admin: 06/30/20 15:50 Dose: Not Given Documented by: Penicillin G Potassium 5 (millunits/ Sodium Chloride) 100 mls @ 200 mls/hr IV ONETIME ONE Stop: 06/30/20 14:21 Last Admin: 06/30/20 16:10 Dose: Not Given Documented by: Lidocaine HCl (Xylocaine 1%) Confirm Administered Dose 100 ml .ROUTE .STK-MED ONE Stop: 06/30/20 14:07 Last Admin: 06/30/20 15:51 Dose: Not Given Documented by: Methylergonovine Maleate (Methergine) Confirm Administered Dose 0.2 mg .ROUTE .STK-MED ONE Stop: 06/30/20 14:06 Last Admin: 06/30/20 15:50 Dose: Not Given Documented by: Misoprostol (Cytotec) Confirm Administered Dose 800 mcg .ROUTE .STK-MED ONE Stop: 06/30/20 14:06 Last Admin: 06/30/20 15:50 Dose: Not Given Documented by: Oxytocin (Pitocin) Confirm Administered Dose 10 unit .ROUTE .STK-MED ONE Stop: 06/30/20 14:07 Last Admin: 06/30/20 15:51 Dose: Not Given Documented by: - Infant Interaction Disposition, : [place] in Room with Family Interaction: Holding Infant Feeding: Bottle Fed Support Person: Significant Other - Recovery Exam Fundal Tone: Firm Fundal Level: At Umbilicus Fundal Placement: Midline Lochia Amount: Small Lochia Color: Rubra/Red Perineum Description: Intact, Minimal Bruising/Swelling Episiotomy/Laceration: None Bladder Status: Voiding - Exam General: Alert, Oriented HEENT: Pupils Equal Neck: Supple Lungs: Clear to Auscultation, Normal Respiratory Effort Cardiovascular: Regular Rate, Regular Rhythm. No: Murmurs GI/Abdominal Exam: Normal Bowel Sounds, Soft, Non-Tender, No Distention, Pelvis Stable Extremities: Normal Inspection, Normal Range of Motion, Non-Tender, No Pedal Edema, Normal Capillary Refill Skin: Warm, Dry, Intact Neurological: No New Focal Deficit Psy/Mental Status: Alert, Normal Affect, Normal Mood - Problem List & Annotations (1) with fetus of unknown gestational age SNOMED Code(s): 301204877 Code(s): Z34.90 - ENCNTR FOR SUPRVSN OF NORMAL , UNSP, UNSP TRIMESTER Status: Acute Current Visit: Yes (2) History of drug abuse SNOMED Code(s): 490717908 Code(s): Z87.898 - PERSONAL HISTORY OF OTHER SPECIFIED CONDITIONS Status: Acute Current Visit: No (3) Insufficient care SNOMED Code(s): 9651271953893 Code(s): O09.30 - SUPRVSN OF PREG W INSUFFICIENT ANTENAT CARE, UNSP TRIMESTER Status: Acute Current Visit: No Qualifiers: Trimester: third trimester Qualified Code(s): O09.33 - Supervision of with insufficient care, third trimester (4) Vaginal delivery SNOMED Code(s): 096611157 Code(s): O80 - ENCOUNTER FOR FULL-TERM UNCOMPLICATED DELIVERY Status: Acute Current Visit: Yes - Problem List Review Problem List Initiated/Reviewed/Updated: Yes - My Orders Last 24 Hours: My Active Orders 06/30/20 Lunch Clear Liquid Diet [DIET] 06/30/20 13:34 OB Check [OM.PC] Click to Edit 06/30/20 13:54 Patient Status [ADT] Routine Vital Signs [RC] PER UNIT ROUTINE Sodium Chloride 0.9% [Saline Flush] 10 ml FLUSH ASDIRECTED PRN DVT/VTE Prophylaxis Reflex [OM.PC] Routine Saline Lock Insert [OM.PC] Routine Resuscitation Status Routine 06/30/20 13:55 Notify Provider Vital Signs [RC] PRN 06/30/20 13:56 VTE/DVT Education [RC] Click to Edit 06/30/20 14:00 Oxytocin/Normal Saline [Pitocin in NS 20 Units/1,000 ML] 20 unit in 1,000 ml IV ASDIRECTED 06/30/20 14:05 HBSAG SCREEN Routine HCV ANTIBODY Routine RUBELLA ANTIBODIES, IGG Stat T PALLIDUM SCREENING CASCADE Routine 06/30/20 14:49 Patient Status [ADT] Routine May Shower [RC] ASDIRECTED Up ad Dipti [RC] ASDIRECTED Consult to Case Management/Driver Trainer [CONS] Routine Docusate Sodium [Colace] 100 mg PO BID PRN Assess Lochia [WOMSER] Per Unit Routine Assess Uterine Involution [WOMSER] Per Unit Routine 06/30/20 14:50 Ice Therapy [OM.PC] Per Unit Routine Perineal Care [OM.PC] Per Unit Routine 06/30/20 15:00 Acetaminophen [Tylenol Bulk Bottle] 650 mg PO Q4H PRN 06/30/20 15:01 Ibuprofen [Motrin Bulk Bottle] 600 mg PO Q6H PRN 06/30/20 Dinner Regular Diet [DIET] Ferrous Sulfate 325 mg PO BIDMEALS 07/02/20 06:00 CBC WITH AUTO DIFF [HEME] Timed - Assessment Assessment:: 06/30/20 delivered male via No care, unknown GA but baby appears term Substance abuse, last use 2 days ago Hgb 8.2 pre-delivery HIV negative, UDS positive amphetamines and methamphetamines All other labs pending Unknown GBS- started penicillin but did not finish dose before delivery FF and EBL 250 ml 07/01/20 PP day 1, doing well VSS Hgb 7.0, asymptomatic, she refuses any blood products, she has history of anemia Blood type O positive FF and bleeding light Formula feeding baby - Plan Plan:: 06/30/20 per patient report Unknown GA GBS unknown Positive drug screen Plan: Penicillin for unknown GBS All labs ordered Ready for NRP Cord drug testing 06/30/20 Routine pp cares Social service consult Hgb repeat tomorrow am Ferrous sulfate Plans to bottle feed 07/01/20 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
[2020-07-02 07:56] VITALS: BP 141/71; PULSE 87
[2020-07-02 09:12] LABS: HBSAG SCREEN Negative (Negative)
--- NOTE | 2020-07-02 09:40 | PCM.PNPP ---
- General Info Date of Service: 07/02/20 Functional Status: Reports: Pain Controlled - Review of Systems General: Reports: No Symptoms HEENT: Reports: No Symptoms Pulmonary: Reports: No Symptoms Cardiovascular: Reports: No Symptoms Gastrointestinal: Reports: No Symptoms Genitourinary: Reports: No Symptoms Musculoskeletal: Reports: No Symptoms Skin: Reports: No Symptoms Neurological: Reports: No Symptoms Psychiatric: Reports: No Symptoms - General Info Date of Service: 07/02/20 - Patient Data Vital Signs - Most Recent: Last Vital Signs Temp 36.2 C 07/02/20 07:55 Pulse 87 07/02/20 07:55 Resp 16 07/02/20 07:55 BP 141/71 H 07/02/20 07:55 Pulse Ox 98 07/02/20 07:55 Weight - Most Recent: 72.575 kg I&O - Last 24 Hours: Intake & Output 07/01/20 07/02/20 07/02/20 22:59 06:59 14:59 Intake Total 240 460 Balance 240 460 Lab Results - Last 24 Hours: Laboratory Results - last 24 hr 06/30/20 06/30/20 06/30/20 Range/Units 14:05 14:05 14:05 WBC (4.5-11.0) K/uL RBC (3.30-5.50) M/uL Hgb (12.0-15.0) g/dL Hct (36.0-48.0) % MCV (80-98) fL MCH (27-31) pg MCHC (32-36) % Plt Count (150-400) K/uL Neut % (Auto) (36-66) % Lymph % (Auto) (24-44) % [place] % (Auto) (2-6) % Eos % (Auto) (2-4) % Baso % (Auto) (0-1) % Hep Bs Antigen Negative (Negative) Hepatitis C Antibody <0.1 (0.0-0.9) s/co ratio Rubella IgG Antibody 1.18 (Immune >0.99) index 07/02/20 Range/Units 04:00 WBC 12.4 H (4.5-11.0) K/uL RBC 3.78 (3.30-5.50) M/uL Hgb 6.8 L* (12.0-15.0) g/dL Hct 24.7 L (36.0-48.0) % MCV 65 L (80-98) fL MCH 18 L (27-31) pg MCHC 28 L (32-36) % Plt Count 233 (150-400) K/uL Neut % (Auto) 58 (36-66) % Lymph % (Auto) 31 (24-44) % [place] % (Auto) 6 (2-6) % Eos % (Auto) 4 (2-4) % Baso % (Auto) 1 (0-1) % Hep Bs Antigen (Negative) Hepatitis C Antibody (0.0-0.9) s/co ratio Rubella IgG Antibody (Immune >0.99) index Med Orders - Current: Current Medications Acetaminophen (Tylenol Bulk Bottle) 650 mg PO Q4H PRN PRN Reason: mild pain or fever Last Admin: 07/01/20 05:38 Dose: 650 mg Documented by: Docusate Sodium (Colace) 100 mg PO BID PRN PRN Reason: Constipation [facility]ous S[facility]) [facility] Last Admin: 07/01/20 16:13 Dose: 325 mg Documented by: Oxytocin/Sodium Chloride (Pitocin In Ns 20 Units/1,000 Ml) 20 unit in 1,000 mls @ 999 mls/hr IV ASDIRECTED [facility]; Protocol Last Admin: 06/30/20 16:14 Dose: 999 mls/hr, 999 mls/hr Documented by: Ibuprofen (Motrin Bulk Bottle) 600 mg PO Q6H PRN PRN Reason: mild pain or fever Last Admin: 07/01/20 05:37 Dose: 600 mg Documented by: Sodium Chloride (Saline Flush) 10 ml FLUSH ASDIRECTED PRN PRN Reason: Keep Vein Open Discontinued Medications Carboprost Tromethamine (Hemabate Ds) Confirm Administered Dose 250 mcg .ROUTE .STK-MED ONE Stop: 06/30/20 14:06 Last Admin: 06/30/20 15:50 Dose: Not Given Documented by: Penicillin G Potassium 5 (millunits/ Sodium Chloride) 100 mls @ 200 mls/hr IV ONETIME ONE Stop: 06/30/20 14:21 Last Admin: 06/30/20 16:10 Dose: Not Given Documented by: Lidocaine HCl (Xylocaine 1%) Confirm Administered Dose 100 ml .ROUTE .STK-MED ONE Stop: 06/30/20 14:07 Last Admin: 06/30/20 15:51 Dose: Not Given Documented by: Methylergonovine Maleate (Methergine) Confirm Administered Dose 0.2 mg .ROUTE .S TK-MED ONE Stop: 06/30/20 14:06 Last Admin: 06/30/20 15:50 Dose: Not Given Documented by: Misoprostol (Cytotec) Confirm Administered Dose 800 mcg .ROUTE .STK-MED ONE Stop: 06/30/20 14:06 Last Admin: 06/30/20 15:50 Dose: Not Given Documented by: Oxytocin (Pitocin) Confirm Administered Dose 10 unit .ROUTE .STK-MED ONE Stop: 06/30/20 14:07 Last Admin: 06/30/20 15:51 Dose: Not Given Documented by: - Infant Interaction Infant Disposition, : in Room with Family Infant Interaction: Other (see below) (very sleepy today, needs cues to feed baby) Infant Feeding: Bottle Fed Infant Support Person: Significant Other - Recovery Exam Fundal Tone: Firm Fundal Level: 1 Fingerbreadths Above Umbilicus Fundal Placement: Left Lochia Amount: Small Lochia Color: Rubra/Red Perineum Description: Intact, Minimal Bruising/Swelling Episiotomy/Laceration: None Bladder Status: Voiding Urinary Elimination: Voided - Exam General: Alert, Oriented HEENT: Pupils Equal, Pupils Reactive, Mucous Membr. Moist/[place] Neck: Supple Lungs: Clear to Auscultation, Normal Respiratory Effort Cardiovascular: Regular Rate, Regular Rhythm GI/Abdominal Exam: Normal Bowel Sounds, Soft, Non-Tender, No Organomegaly, No Distention, No Mass, Pelvis Stable Extremities: Normal Inspection, Normal Range of Motion, Non-Tender, No Pedal Edema, Normal Capillary Refill Skin: Warm, Dry, Intact Neurological: No New Focal Deficit Psy/Mental Status: Alert, Normal Affect, Normal Mood - Problem List & Annotations (1) with fetus of unknown gestational age SNOMED Code(s): 544014775 Code(s): Z34.90 - ENCNTR FOR SUPRVSN OF NORMAL , UNSP, UNSP TRIMESTER Status: Acute Current Visit: Yes (2) History of drug abuse SNOMED Code(s): 814012456 Code(s): Z87.898 - PERSONAL HISTORY OF OTHER SPECIFIED CONDITIONS Status: Acute Current Visit: No (3) Insufficient care SNOMED Code(s): 7438627814220 Code(s): O09.30 - SUPRVSN OF PREG W INSUFFICIENT ANTENAT CARE, UNSP TRIMESTER Status: Acute Current Visit: No Qualifiers: Trimester: third trimester Qualified Code(s): O09.33 - Supervision of with insufficient care, third trimester (4) Vaginal delivery SNOMED Code(s): 946564183 Code(s): O80 - ENCOUNTER FOR FULL-TERM UNCOMPLICATED DELIVERY Status: Acute Current Visit: Yes - Problem List Review Problem List Initiated/Reviewed/Updated: Yes - Assessment Assessment:: 06/30/20 delivered male infant via No care, unknown GA but baby appears term Substance abuse, last use 2 days ago Hgb 8.2 pre-delivery HIV negative, UDS positive amphetamines and methamphetamines All other labs pending Unknown GBS- started penicillin but did not finish dose before delivery FF and EBL 250 ml 07/01/20 PP day 1, doing well VSS Hgb 7.0, asymptomatic, she refuses any blood products, she has history of anemia Blood type O positive FF and bleeding light Formula feeding baby 07/01/20 PP day 2, doing well Hgb 6.8, asymptomatic, chronically anemic VSS No pain, bleeding light - Plan Plan:: 06/30/20 per patient report Unknown [place] GBS unknown Positive drug screen Plan: Penicillin for unknown GBS All labs ordered Ready for NRP Cord drug testing 06/30/20 Routine pp cares Social service consult Hgb repeat tomorrow am Ferrous sulfate Plans to bottle feed 07/01/20 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 She is very tired and sleeping much of the time. Ferrous sulfate 325mg BID for at least 6 weeks 6 week pp check
[2020-07-02] MEDS: Ferrous Sulfate 325 MG Tab PO SCH (11:26)
[2020-07-03 20:12] LABS: T PALLIDUM ANTIBODIES Non Reactive (Non Reactive)
== END 2020-07-02 14:05 | disposition home or self-care (01) | DRG 806 ==
LOC: JP.OBCHECK 13:27 → JP.OB 13:59 → OBSVTOIN 14:31 → JP.MS 18:29
PROVIDERS: ADMIT Advanced Practice Midwife; ATTEND Advanced Practice Midwife
PROC: 10E0XZZ Delivery of Products of Conception, External Approach (ICD-10-PCS; principal; 2020-06-30)
PROC: 10907ZC Drainage of Amniotic Fluid, Therapeutic from Products of Conception, Via Natural or Artificial Opening (ICD-10-PCS; 2020-06-30)
DX: O69.81X0 Labor and delivery complicated by cord around neck, without compression, not applicable or unspecified (principal); O99.324 Drug use complicating childbirth; Z37.0 Single live birth; Z3A.00 Weeks of gestation of pregnancy not specified; F15.90 Other stimulant use, unspecified, uncomplicated; O99.02 Anemia complicating childbirth; D64.9 Anemia, unspecified
CPT/HCPCS: 36415; 59409; 80305-QW; 81001; 85025; 86762; 86780; 86803; 86900; 86901; 87340; 87449; 99211; A9270-GY; J2590

== ENCOUNTER 2023-07-17 12:09 | Emergency (ER) | payer MEDICAID | END 2023-07-17 13:22 | disposition left against medical advice (07) | LOC: JP.ED 12:09 | DX: Z53.21 Procedure and treatment not carried out due to patient leaving prior to being seen by health care provider (principal) ==